=== PATIENT | female | born 1960 | race African-American/Black ===

== ENCOUNTER 2017-05-13 06:46 | Emergency (ER) | payer OTHER ==
[~2017-05-13] VITALS: Ht 160 cm; Wt 83.9 kg
[~2017-05-13 06:46] MED LIST: ACETAMINOPHEN-1 EAC1; AMITRIPTYLINE H75 M1; CALCIUM 600 +1 EA15; CYMBALTA20 MG; DIAZEPAM 2MG TAB2 MG; FLEXERIL PO; LAMISIL250 MG; NAPROSYN500 MG; NEURONTIN 300300 M1; NORCO 5-325 TA1 EACH PO; NORVASC10 MG; PERCOCET 10-321 EACH; PERCOCET 10-321 EACH PO; REGLAN 10 MG TA10 MG; ROBAXIN500 MG; TOPAMAX25 M1; TYLENOL WITH CO1 TA1; VENTOLIN HFA 1818 GM; VITAMIN D32000 UNIT
[2017-05-13] MEDS ORDERED: XANAX 0.5 MG0.5 MG PO (07:15)
[2017-05-13] MEDS ORDERED: PERCOCET 10-321 EACH PO (07:16)
== END 2017-05-13 09:10 | disposition home or self-care (01) ==
LOC: ER 06:46
DX: M96.830 Postprocedural hemorrhage of a musculoskeletal structure following a musculoskeletal system procedure (principal); I10 Essential (primary) hypertension; F17.210 Nicotine dependence, cigarettes, uncomplicated; Z88.1 Allergy status to other antibiotic agents

== ENCOUNTER 2020-10-20 15:49 | Emergency (ER) | payer MEDICARE, OTHER ==
[~2020-10-20] VITALS: Ht 160 cm; Wt 59.0 kg
[~2020-10-20 15:49] MED LIST changes: +XANAX 0.5 MG0.5 MG PO
[2020-10-20] MEDS ORDERED: AUGMENTIN 875-1 EACH PO (17:25)
[2020-10-20 17:43] VITALS: BP 110/63
== END 2020-10-20 17:44 | disposition home or self-care (01) ==
LOC: ER 15:49
DX: T25.232A Burn of second degree of left toe(s) (nail), initial encounter (principal); I10 Essential (primary) hypertension; F17.210 Nicotine dependence, cigarettes, uncomplicated; Z87.820 Personal history of traumatic brain injury; Z79.51 Long term (current) use of inhaled steroids; Z79.1 Long term (current) use of non-steroidal anti-inflammatories (NSAID); Z79.891 Long term (current) use of opiate analgesic; Z79.899 Other long term (current) drug therapy; Z88.8 Allergy status to other drugs, medicaments and biological substances; X12.XXXA Contact with other hot fluids, initial encounter; Y93.89 Activity, other specified; Y92.89 Other specified places as the place of occurrence of the external cause; Y99.8 Other external cause status